=== PATIENT | female | born 1935 | race Caucasian/White ===

== ENCOUNTER → 2016-11-19 | Outpatient (CLI) | payer MEDICARE ==
[~2016-11-19] MED LIST: ADVAIR 250/5028 PUFF IN; ASPIR 8181 MG PO; FERROUS SULFAT325 M2 PO; METOPROLOL 25 M25 MG PO; METOPROLOL SUCC50 M1 PO; NAMENDA10 MG PO; PANTOPRAZOLE SO40 MG PO; PLAVIX 75MG TAB75 MG PO; TOVIAZ4 MG PO; VITAMIN D31000 IU PO
--- NOTE | 2016-11-19 15:28 | RADIOLOGY REPORT PS360 ---
BONE DENSITOMETRY(HIP:LT SPINE HISTORY: POST MENOPAUSAL ORDERING PHYSICIAN: Flakita Benton MD PATIENT AGE: 81 years COMPARISON: None FINDINGS: The BMD measured at the left femoral neck is 0.670 g/cm squared with a T score of -2.6. This is considered osteoporosis according to the World Health Organization criteria. Fracture risk is high. Treatment should be initiated if not already started. IMPRESSION: Osteoporosis. High fracture risk. Treatment recommended. Recommend follow-up exam November 2017
--- NOTE | 2016-11-23 16:28 | RADIOLOGY REPORT PS360 ---
DIG MAMM-SCREEN NATALIYA W/CAD CAD Screening COMPARISON: None INDICATION: The patient has Alzheimer's disease. There is no history provided. TECHNIQUE: Standard CC and MLO images were obtained. R2 CAD reviewed. FINDINGS: The breasts are closed primarily of fat with minimal scattered fibroglandular densities in each breast. There is prominent arterial calcification in each breast. There is no suspicious lesion and there are no suspicious microcalcifications. IMPRESSION: Fatty type breast parenchyma with no suspicious lesion seen recommend yearly follow-up BI-RADS CATEGORY: 2_Benign RECOMMENDED FOLLOWUP: 12M 12 MONTH FOLLOW-UP (A letter has been sent to the patient regarding results of the study.)
== END ==
LOC: RAD 10:04
DX: Z12.31 Encounter for screening mammogram for malignant neoplasm of breast (principal); Z78.0 Asymptomatic menopausal state; Z13.820 Encounter for screening for osteoporosis
CPT/HCPCS: G0202

== ENCOUNTER 2017-02-27 14:40 | Emergency (ER) | payer MEDICARE ==
[~2017-02-27] VITALS: Ht 165.1 cm; Wt 74.8 kg
--- OUTSIDE RECORDS SUMMARY | 2017-02-27 14:48 | External Medical Summary Rpt | CCD ---
Author Author , ANNALISE Organization ANNALISE Address Unknown Phone [email or web address] Care Team Providers Care Air Conditioning Installer Supervisor Name Role Phone Kasie Avalos MD, Unavailable Unavailable Kasie Avalos MD Purpose Continuity of Care Document - 11-05-2012 through 2016 Problems Code Diagnosis DOS Provider Status 331.0 331.0 11-05-2012 [place] [facility] DISEASE [facility] 401.9 401.9 11-05-2012 [facility] 719.43 719.43 11-05-2012 [facility] PAIN-FOREAR [facility] M 724.2 724.2 11-05-2012 [facility] 780.39 780.39 11-05-2012 [facility] CONVULSIONS [facility] Z78.0 ASYMPTOMATI C MENOPAUSAL STATE Allergies, Adverse Reactions, Alerts Type Allergy to substance Adverse Reaction to Substance Substance Reaction Severity INGREDIENT: NO KNOWN Unknown Unknown - NO KNOWN DRUG ALLERGY Medications Na ND Rx Da Fi Fi Am Da Di Ph RX Ph St me C No te ll ll ou ys ag ar # ys at rm s nt no ma ic us Or Da si cy ia de te s n re d MA 00 08 0 No PA 90 -0 P 41 4- Lo 32 98 20 ng 5 26 13 er MG 1 Ac TA ti BL ve ET Vital Signs 11-05-2012 10:46 Name Value Interpretat Reference Comment ion Range Body 97.6 [degF] Temperature BP 81 mm[Hg] Diastolic BP Systolic 155 mm[Hg] Heart 77 /min Rate/Pulse O2% 97 % Respiratory 20 /min Rate 11-05-2012 09:50 Name Value Interpretat Reference Comment ion Range BP 85 mm[Hg] Diastolic BP Systolic 144 mm[Hg] Heart 80 /min Rate/Pulse O2% 97 % Respiratory 20 /min Rate Results Labs Lab Lab Date Result Refere Interp Status Commen Order Detail nces retati t Range on URINALYSIS/COMPLETE (11-05-2012 09:40) URINE 08-04-2 YELLOW YELLOW complet COLOR 013 ed 09:40 URINE 08-04-2 CLEAR CLEAR complet APPEARA 013 ed NCE 09:40 URINE 08-04-2 NEGATIV NEG complet GLUCOSE 013 E ed - 09:40 DIPSTIC K URINE 08-04-2 NEGATIV NEG complet BILIRUB 013 E ed IN - 09:40 DIPSTIC K URINE 08-04-2 NEGATIV NEG complet KETONE 013 E mg/dL ed 09:40 URINE 08-04-2 1.015 1.005-1 complet SPECIFI 013 UNK .030 ed C 09:40 GRAVITY URINE 08-04-2 1+ NEG complet BLOOD 013 ed 09:40 URINE 08-04-2 7.0 UNK 5.0-8.5 complet PH 013 ed 09:40 URINE 08-04-2 NEGATIV NEG complet PROTEIN 013 E mg/dL ed - 09:40 DIPSTIC K URINE 08-04-2 0.2 NEG complet UROBILI 013 E.U./dL ed NOGEN - 09:40 DIPSTIC K URINE 08-04-2 NEGATIV NEG complet NITRATE 013 E ed - 09:40 DIPSTIC K URINE 08-04-2 NEGATIV NEG complet LEUK 013 E ed ESTERAS 09:40 E URINE 08-04-2 OCC O complet WBC 013 wbc/hpf ed 09:40 URINE 08-04-2 OCC 0-5 complet SQUAMOU 013 #/hpf ed S CELLS 09:40 URINE 08-04-2 OCC NONE complet AMORPH 013 ed SEDIMEN 09:40 T Encounters Encounter Start End Date Code Location Performer Type Date Emergency TYRONE Avalos MD (ER) 3 09:40 3 10:53 [facility]
--- OUTSIDE RECORDS SUMMARY | 2017-02-27 14:48 | External Medical Summary Rpt | CCD ---
Author Author , ANNALISE Organization ANNALISE Address Unknown Phone [email or web address] Care Team Providers Care Welder Gun Name Role Phone Kasie Avalos MD, Unavailable Unavailable Kasie Avalos MD Purpose Continuity of Care Document - 11-05-2012 through 2016 Problems Code Diagnosis DOS Provider Status 331.0 331.0 11-05-2012 [place] [facility] DISEASE [facility] 401.9 401.9 11-05-2012 [facility] 719.43 719.43 11-05-2012 [facility] PAIN-FOREAR [facility] M 724.2 724.2 11-05-2012 [facility] 780.39 780.39 11-05-2012 [facility] CONVULSIONS [facility] Z78.0 ASYMPTOMATI C MENOPAUSAL STATE Allergies, Adverse [...] Avalos MD (ER) 3 09:40 3 10:53 [facility]
--- OUTSIDE RECORDS SUMMARY | 2017-02-27 14:48 | External Medical Summary Rpt | CCD ---
Author Author , ANNALISE WOODY Address Unknown Phone Immunization Name Date Rout CVX Reac Dose Comm Prov Is Faci e tion ent ider Refu lity Give sed n PCV1 05-1 133 0.5 Hist D049 No D049 3 2-20 mL oric 01 01 17 al Info rmat ion - Sour ce Unsp ecif ied Infl 10-0 88 999 Hist FQ11 No FQ11 uenz 8-20 oric a, 13 al UF Info rmat ion - Sour ce Unsp ecif ied Infl 09-0 Intr 140 999 Hist FQ11 No FQ11 uenz 7-20 amus oric a, 12 cula al P-Fr r Info ee rmat ion - Sour ce Unsp ecif ied
--- OUTSIDE RECORDS SUMMARY | 2017-02-27 14:48 | External Medical Summary Rpt | CCD ---
Author Author Conduent Organization Conduent Address Unknown Phone Unavailable Purpose Continuity of Care Document - through 2016
--- OUTSIDE RECORDS SUMMARY | 2017-02-27 14:48 | External Medical Summary Rpt ---
Author Author ANNALISE Calhoun, ANNALISE [employer] Organization [employer] Address Unknown Phone Unavailable Payers Section Payer Plan Name Group ID Member ID Coverage Coverage Start End Date Date [place] 2073 [id number] No No Gov B informati informati Services on in on in Medicare source source data data
--- OUTSIDE RECORDS SUMMARY | 2017-02-27 14:48 | External Medical Summary Rpt ---
Author Author ANNALISE Calhoun, ANNALISE [employer] Organization [employer] Address Unknown Phone Unavailable Payers Section Payer Plan Name Group ID Member ID Coverage Coverage Start End Date Date [place] 2073 [id number] No No Gov B informati informati Services on in on in Medicare source source data data
--- NOTE | 2017-02-27 15:05 | Emergency Room Report ---
History of Present Illness Time Seen by [id number] Presenting Problem in Triage Pt arrived:Ambulance Stretcher Presenting Problem:HEALTHCARE EDUCATOR STATES THAT PT WAS HAVING CHEST PAIN SHE WAS GIVEN 324MG ASPIRN. SON AND PT POOR HISTORIANS. PT DID SAY SHE WAS NOT HAVING CHEST PAIN CURRENTLY. Onset of symptoms date/time:/ or onset unknown for:MEDICAL HX UNKNOWN Treatment Prior to Arrival: DARIEN HEALTHCARE EDUCATOR GAVE PT 324MG OF ASPIRIN, LABS DRAWN AND EGK DONE. FINANCE CONSULTANT Provided by:HEALTHCARE EDUCATOR Sepsis Risk Assessment: Temp: 98 B/P: 142/73 MAP: 96 Pulse: 71 Resp: 18 Recent fever? N Clinical Suspician of Infection? N Mental Status: 2 - Mildly Altered Sepsis Risk:Low Sepsis Risk Have you (or family members/close friends) recently traveled outside the [place]? N If Yes, where/when: Have you had exposure to infectious disease within the past month? N TB? Other? Specify: Source patient, RN notes reviewed Exam Limitations no limitations Comment Pt brought to the ED via ambulance and Paramedics says the call was to fruit picker a pt with chest pain. They gave her 325mg ASA and chest pain resolved by the time she got to the ED. She is not a good historian....? Dementia Cardiac Chest Pain Chest pain indicative of cardiac Yes ALLERGIES Coded Allergies: No Known Allergies (10/25/16) Home Medications Reported Medications Metoprolol Succinate Xl (Metoprolol ER 50MG) 50 MG PO DAILY Aspirin (Aspirin EC 81MG Tab) 81 MG PO DAILY CHOLECALCIFEROL (VITAMIN D3) (Vitamin D) 2,000 IUNITS PO DAILY Fesoterodine Fumarate (Toviaz) 4 MG PO DAILY Metoprolol Tartrate (Metoprolol 25MG) 12.5 MG PO BID FLUTICASONE/SALMETEROL (Advair 250-50 Diskus) 1 PUFF IN BID Ferrous Sulfate (Ferrous Sulfate 325MG) 325 MG PO DAILY Pantoprazole Sodium (Pantoprazole 40MG) 40 MG PO DAILY CLOPIDOGREL BISULFATE (PLAVIX) 75 MG PO DAILY History Medical History General CAD? No Angina: No [place]: No Hypertension? Yes Hyperlipidemia? Yes CHF? No DVT? Yes PE? No COPD? No Asthma? No Anemia? No GERD? Yes Gastric ulcers? No GI Bleed? Yes Hernia? No Thyroid Problems? Yes Hypothyroidism? No CVA? No Seizures? Yes Diabetes? No Renal Insuffiency? No End Stage Renal Disease? No UTI? No Stones? No BPH? No GB Disease: No Nephritic Syndrome? No Asplenia? No Hepatitis? No Sickle Cell Disease? No Arthritis? Yes Migraines? No Cataracts? Yes Glaucoma? No MRSA? No HIV? No TB? No Anxiety? No Depression? No Cancer? No More? No Immunization Hx DT/Tetanus > 10 YRS Flu 2016-17FSN Pneumonia Received In Past Surgical Hx Previous Surgery?Y Hysterect STOMACH-? NECK SURGERY FOOT SURGERY exploratory lap Family History Family Hx Diabetes Yes CAD Yes Hypertension Yes Hyperlipidemia No Cancer No TB No Social History Smoking Hx Smoker: Never Smoker Tobacco: No Alcohol Alcohol: No Review of Systems All Other Systems Reviewed and Negative Constitutional see HPI Respiratory see HPI Cardiovascular see HPI Physical Exam Vital Signs Vital Signs Date Time Temp Pulse Resp B/P Pulse O2 O2 Flow FiO2 Ox Delivery Rate 02/27 1442 98.0 71 18 142/73 96 General Appearance normal appearance, no apparent distress, masked facies Respiratory Status No: respiratory distress. Lung Sounds bilateral: normal breath sounds. Cardiovascular normal exam, regular rate/rhythm Neurologic alert, gymnastics instructor II-XII nml as tested, normal exam Medical Decision Making LABS/Meds/Orders Pt receiving controlled substance in ED? No Results/Orders Laboratory Tests 02/27/17 1520: Creatine Kinase 71, CK-MB (CK-2) Rel Index 2.3, CK and CKMB Interp 1.6, Troponin I < 0.02 02/27/17 1520: Sodium 139, Potassium 3.8, Chloride 101, Carbon Dioxide 31, BUN 18, Creatinine 1.1 H, Estimated Creat Clear 46 L, Estimated GFR (MDRD) 47 L, Glucose 123 H, Calcium 9.4, Total Bilirubin 0.4, AST 17, ALT 16, Alkaline Phosphatase 86, Total Protein 7.6, Albumin 3.4, Globulin 4.2 H, Albumin/Globulin Ratio 0.8 L, WBC 11.2 H, RBC 4.32, Hgb 13.4, Hct 41.7, MCV 96.6, RDW 12.9, Plt Count 325, MPV 6.9 L, Gran % 82.6 H, Gran # 9.2 H, Lymphocytes % 12.2, Monocytes % 4.0, Eosinophils % 1.0, Basophils % 0.2, Lymphocytes # 1.4, Monocytes # 0.5, Eosinophils # 0.1, Basophils # 0.0, PUBS MCHC 32.2, MCH 31.1 Current Medication Orders Sig/Theresa Start time Last Medication Dose Route Stop Time Status Admin Sodium Chloride 10 ML PRN PRN 02/27 1545 AC IV 02/28 1541 Orders Procedure Date/time Status ELECTROCARDIOGRAM REQUEST 02/27 1541 Active IV SALINE LOCK 02/27 1541 Active CARDIAC ENZYMES 02/27 1512 Complete CHEST-PORTABLE 02/27 1508 Active URINALYSIS/COMPLETE 02/27 1508 Active CBC WITH AUTO DIFF 02/27 1508 Complete CHEM 12 PROFILE 02/27 1508 Complete 12 LEAD EKG-BESSON (INITIAL) 02/27 UNK Active Departure Departure Time of Disposition 1720 Disposition DC Home or Self Care(routine) Clinical Impression Primary Impression: Dementia Qualifiers: Dementia type: Alzheimer's disease Alzheimer's disease onset: unspecified onset Dementia behavioral disturbance: without behavioral disturbance Qualified Code: G30.9 - Alzheimer's disease, unspecified Secondary Impressions: Atypical chest pain Condition STABLE Patient Instructions DI for Atypical Chest Pain Additional Instructions DC home when comes to pick her up and she has been advised to followup with PCP or return to the ED as needed. Discharge Counseling Counseled pt/family regarding diagnosis, test results, follow up needs ED Critical Care Critical Care No If Critical Care minutes are documented, the time involved in the performance of seperately reportable procedures was not counted toward critical care time documented. I directly delivered medical care to this critically ill and/or injured patient. Timely evaluation and treatment was necessary to address the significant organ system(s) dysfunction present in this patient. at 1721
--- NOTE | 2017-02-27 15:05 | Emergency Room Report ---
History of Present Illness Time Seen by [id number] Presenting Problem in Triage Pt arrived:Ambulance Stretcher Presenting Problem:OIL LEASE BROKER STATES THAT PT WAS HAVING CHEST PAIN SHE WAS GIVEN 324MG ASPIRN. SON AND PT POOR HISTORIANS. PT DID SAY SHE WAS NOT HAVING CHEST PAIN CURRENTLY. Onset of symptoms date/time:/ or onset unknown for:MEDICAL HX UNKNOWN Treatment Prior to Arrival: DARIEN OIL LEASE BROKER GAVE PT 324MG OF ASPIRIN, LABS DRAWN AND EGK DONE. 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 N Clinical Suspician of Infection? N Mental Status: 2 - Mildly Altered Sepsis Risk:Low Sepsis Risk Have you (or family members/close friends) recently traveled outside the [place]? N If Yes, where/when: Have you had exposure to infectious disease within the past month? N TB? Other? Specify: Source patient, RN notes reviewed Exam Limitations no limitations Comment Pt brought to the ED via ambulance and Paramedics says the call was to pick up attendant a pt with chest pain. They gave her 325mg ASA and chest pain resolved by the time she got to the ED. She is not a good historian....? Dementia Cardiac Chest Pain Chest pain indicative of cardiac Yes ALLERGIES Coded Allergies: No Known Allergies (10/25/16) Home Medications Reported Medications Metoprolol Succinate Xl (Metoprolol ER 50MG) 50 MG PO DAILY Aspirin (Aspirin EC 81MG Tab) 81 MG PO DAILY CHOLECALCIFEROL (VITAMIN D3) (Vitamin D) 2,000 IUNITS PO DAILY Fesoterodine Fumarate (Toviaz) 4 MG PO DAILY Metoprolol Tartrate (Metoprolol 25MG) 12.5 MG PO BID FLUTICASONE/SALMETEROL (Advair 250-50 Diskus) 1 PUFF IN BID Ferrous Sulfate (Ferrous Sulfate 325MG) 325 MG PO DAILY Pantoprazole Sodium (Pantoprazole 40MG) 40 MG PO DAILY CLOPIDOGREL BISULFATE (PLAVIX) 75 MG PO DAILY History Medical History General CAD? No Angina: No [place]: No Hypertension? Yes Hyperlipidemia? Yes CHF? No DVT? Yes PE? No COPD? No Asthma? No Anemia? No GERD? Yes Gastric ulcers? No GI Bleed? Yes Hernia? No Thyroid Problems? Yes Hypothyroidism? No CVA? No Seizures? Yes Diabetes? No Renal Insuffiency? No End Stage Renal Disease? No UTI? No Stones? No BPH? No GB Disease: No Nephritic Syndrome? No Asplenia? No Hepatitis? No Sickle Cell Disease? No Arthritis? Yes Migraines? No Cataracts? Yes Glaucoma? No MRSA? No HIV? No TB? No Anxiety? No Depression? No Cancer? No More? No Immunization Hx DT/Tetanus > 10 YRS Flu 2016-17FSN Pneumonia Received In Past Surgical Hx Previous Surgery?Y Hysterect STOMACH-? NECK SURGERY FOOT SURGERY exploratory lap Family History Family Hx Diabetes Yes CAD Yes Hypertension Yes Hyperlipidemia No Cancer No TB No Social History Smoking Hx Smoker: Never Smoker Tobacco: No Alcohol Alcohol: No Review of Systems All Other Systems Reviewed and Negative Constitutional see HPI Respiratory see HPI Cardiovascular see HPI Physical Exam Vital Signs Vital Signs Date Time Temp Pulse Resp B/P Pulse O2 O2 Flow FiO2 Ox Delivery Rate 02/27 1442 98.0 71 18 142/73 96 General Appearance normal appearance, no apparent distress, masked facies Respiratory Status No: respiratory distress. Lung Sounds bilateral: normal breath sounds. Cardiovascular normal exam, regular rate/rhythm Neurologic alert, data modeling specialist II-XII nml as tested, normal exam Medical Decision Making LABS/Meds/Orders Pt receiving controlled substance in ED? No Results/Orders Laboratory Tests 02/27/17 1520: Creatine Kinase 71, CK-MB (CK-2) Rel Index 2.3, CK and CKMB Interp 1.6, Troponin I < 0.02 02/27/17 1520: Sodium 139, Potassium 3.8, Chloride 101, Carbon Dioxide 31, BUN 18, Creatinine 1.1 H, Estimated Creat Clear 46 L, Estimated GFR (MDRD) 47 L, Glucose 123 H, Calcium 9.4, Total Bilirubin 0.4, AST 17, ALT 16, Alkaline Phosphatase 86, Total Protein 7.6, Albumin 3.4, Globulin 4.2 H, Albumin/Globulin Ratio 0.8 L, WBC 11.2 H, RBC 4.32, Hgb 13.4, Hct 41.7, MCV 96.6, RDW 12.9, Plt Count 325, MPV 6.9 L, Gran % 82.6 H, Gran # 9.2 H, Lymphocytes % 12.2, Monocytes % 4.0, Eosinophils % 1.0, Basophils % 0.2, Lymphocytes # 1.4, Monocytes # 0.5, Eosinophils # 0.1, Basophils # 0.0, PUBS MCHC 32.2, MCH 31.1 Current Medication Orders Sig/Theresa Start time Last Medication Dose Route Stop Time Status Admin Sodium Chloride 10 ML PRN PRN 02/27 1545 AC IV 02/28 1541 Orders Procedure Date/time Status ELECTROCARDIOGRAM REQUEST 02/27 1541 Active IV SALINE LOCK 02/27 1541 Active CARDIAC ENZYMES 02/27 1512 Complete CHEST-PORTABLE 02/27 1508 Active URINALYSIS/COMPLETE 02/27 1508 Active CBC WITH AUTO DIFF 02/27 1508 Complete CHEM 12 PROFILE 02/27 1508 Complete 12 LEAD EKG-BESSON (INITIAL) 02/27 UNK Active Departure Departure Time of Disposition 1720 Disposition DC Home or Self Care(routine) Clinical Impression Primary Impression: Dementia Qualifiers: Dementia type: Alzheimer's disease Alzheimer's disease onset: unspecified onset Dementia behavioral disturbance: without behavioral disturbance Qualified Code: G30.9 - Alzheimer's disease, unspecified Secondary Impressions: Atypical chest pain Condition STABLE Patient Instructions DI for Atypical Chest Pain Additional Instructions DC home when comes to pick her up and she has been advised to followup with PCP or return to the ED as needed. Discharge Counseling Counseled pt/family regarding diagnosis, test results, follow up needs ED Critical Care Critical Care No If Critical Care minutes are documented, the time involved in the performance of seperately reportable procedures was not counted toward critical care time documented. I directly delivered medical care to this critically ill and/or injured patient. Timely evaluation and treatment was necessary to address the significant organ system(s) dysfunction present in this patient. at 1721
[2017-02-27 15:31] LABS: HEMOGLOBIN 13.4 g/dL (12.2-16.2); LYMPH # 1.4 K/mm3 (0.7-4.5); LYMPH % 12.2 % (10-50.0)
[2017-02-27 19:33] VITALS: BP 137/75
--- NOTE | 2017-02-28 09:01 | RADIOLOGY REPORT PS360 ---
CHEST-PORTABLE Ordering physician: Mike Nguyen MD Age: 82 years Female INDICATION: chest symptomschest pain PROCEDURE: AP CHEST-PORTABLE FINDINGS: No previous chest films for comparison. Lung bases are included on the previous CT lumbar spine from 2013 comparison. Upper lung ramey and apices appear hyperexpanded suggests underlying emphysematous changes, developing COPD. Slight coarsening markings may reflect mild interstitial fibrotic changes suggested toward lung bases bilaterally.. More likely this reflects chronic features doubt interstitial infiltrate or pneumonitis. The heart appears normal in size aysha and mediastinal structures satisfactory. No pneumothorax. No pleural effusion. Chest wall unremarkable on this upright AP CXR . Heart normal size. Normal pulmonary vascularity. . IMPRESSION ----- Nothing definitely acute Developing COPD/emphysematous changes noted, with slight interstitial coarsening markings towards bases bilaterally likely related to such.
== END 2017-02-27 19:35 | disposition home or self-care (01) ==
LOC: ER 14:40
PROVIDERS: General Practice
DX: G30.9 Alzheimer's disease, unspecified (principal); R07.89 Other chest pain; Z79.82 Long term (current) use of aspirin; I10 Essential (primary) hypertension; E78.5 Hyperlipidemia, unspecified; K21.9 Gastro-esophageal reflux disease without esophagitis

== ENCOUNTER → 2017-03-11 | Outpatient (CLI) | payer MEDICARE ==
--- NOTE | 2017-03-11 14:33 | RADIOLOGY REPORT PS360 ---
EXAM: THORACIC SPINE-3V SWIMMERS HISTORY: Back pain following injury FALL WITH BACK INJURY COMPARISON: None FINDINGS: Normal alignment. There is mild anterior wedging involving what appears to represent T5 with loss of height anteriorly of approximately 30%. There is minimal loss of height anteriorly of T12 age indeterminate. There is also slight loss of height along the left lateral aspect of T10. There are no previous exams available for comparison. No obvious lytic or blastic change. IMPRESSION: 1. Mild compression changes of T5 and to a lesser degree at T10 age indeterminate. No obvious retropulsion. MRI may be of further value to determine age of these compression fractures
--- NOTE | 2017-03-11 14:37 | RADIOLOGY REPORT PS360 ---
EXAM: LUMBAR SPINE 5 VIEWS HISTORY: Back pain following injury FALL WITH BACK INJURY ORDERING PHYSICIAN: Flakita Benton MD PATIENT AGE: 82 years COMPARISON: 03/11/2016 FINDINGS: There is normal alignment. There is degenerative disc disease at L4-L5 and L5-S1 with facet hypertrophic changes also at L4-L5 and L5-S1. Coarse calcification is present in the mid abdomen anterior to the L3 and L4 region IMPRESSION: Degenerative disc disease with facet arthritic change. No acute fracture with no significant change
== END ==
LOC: RAD 13:19
DX: M54.6 Pain in thoracic spine (principal); M54.5 Low back pain